=== PATIENT | female | born 1945 | race Caucasian/White ===

== ENCOUNTER → 2017-10-23 | Outpatient (CLI) | payer MEDICARE, OTHER | END | disposition home or self-care (01) | LOC: LAB 10:34 | PROVIDERS: ATTEND General Practice | DX: A26.0 Cutaneous erysipeloid (principal); I10 Essential (primary) hypertension | CPT/HCPCS: 36415; 86617; 86618 ==

== ENCOUNTER → 2020-02-28 | Outpatient (CLI) | payer MEDICARE, OTHER ==
[2020-02-28 12:36] LABS: CREATININE 1.1 mg/dL (0.6-1.0); GFR 48.4
[2020-02-28 12:53] LABS: BASO # 0.1 x10^3/uL (0.0-0.2); BASO % 1 % (0-3); EOS # 0.6 x10^3/uL (0.0-0.7); EOS % 8 % (0-3); HEMATOCRIT 34.4 % (36.0-47.0); HEMOGLOBIN 10.9 g/dL (12.0-15.5); LYMPH # 2.7 x10^3/uL (1.0-4.8); LYMPH % 37 % (24-48); MEAN CORPUSCULAR HEMOGLOBIN 25 pg (25-35); MEAN CORPUSCULAR HGB CONC 32 g/dL (31-37); MEAN CORPUSCULAR VOLUME 78 fL (79-100); MONO % 14 % (0-9); NEUT # 2.9 x10^3uL (1.8-7.7); NEUT % 41 % (31-73); PLATELET COUNT 334 x10^3/uL (140-400); RED BLOOD COUNT 4.38 x10^6/uL (3.50-5.40); RED CELL DISTRIBUTION WIDTH 16.1 % (11.5-14.5); WHITE BLOOD COUNT 7.2 x10^3/uL (4.0-11.0)
[2020-03-02 11:08] LABS: HCV ULTRA QUANT PCR HCV Not Detected IU/mL (.)
== END ==
LOC: LAB 11:28
PROVIDERS: ATTEND Internal Medicine Rheumatology
DX: I73.00 Raynaud's syndrome without gangrene (principal); L40.50 Arthropathic psoriasis, unspecified; L40.9 Psoriasis, unspecified; M06.09 Rheumatoid arthritis without rheumatoid factor, multiple sites; M25.519 Pain in unspecified shoulder
CPT/HCPCS: 82565; 84460; 85025; 86481; 86704; 86705; 86706; 86803; 87340; 87522

== ENCOUNTER → 2020-06-16 | Outpatient (CLI) | payer MEDICARE, OTHER ==
--- NOTE | 2020-06-21 10:32 | RAD ---
DATE: 06/16/2020 10:59 AM EXAM: MAMMO HAILE SCREENING BILATERAL HISTORY: Screening COMPARISON: 05/18/2019 Bilateral CC and MLO views of the breasts were performed. Bilateral breast tomosynthesis was performed in MLO projections. Due to previous neck surgery, patient was unable to position satisfactorily for CC tomographic images to be acquired. This study was interpreted with the benefit of Computerized Aided Detection (CAD). FINDINGS: Breast Density: HETERO The breast parenchyma Is heterogeneously dense, which could reduce sensitivity of mammography. Breast parenchyma level C No suspicious masses, microcalcifications or architectural distortion is present to suggest malignancy in either breast. The visualized axillae are unremarkable. IMPRESSION: No mammographic evidence of malignancy. BI-RADS CATEGORY: 1 NEGATIVE RECOMMENDED FOLLOW-UP: 12M 12 MONTH FOLLOW-UP Annual screening mammography is recommended, unless clinically indicated sooner based on symptoms or change in physical exam. PQRS compliance statement: Patient information was entered into a reminder system with a target due date for the next mammogram. Mammography is a sensitive method for finding small breast cancers, but it does not detect them all and is not a substitute for careful clinical examination. A negative mammogram does not negate a clinically suspicious finding and should not result in delay in biopsying a clinically suspicious abnormality. "Our facility is accredited by the [employer] Mammography Program."
== END ==
LOC: MAMMO 10:18
PROVIDERS: ATTEND Family Medicine
DX: Z12.31 Encounter for screening mammogram for malignant neoplasm of breast (principal)
CPT/HCPCS: 77063; 77067

== ENCOUNTER 2020-09-05 13:36 | Emergency (ER) | payer MEDICARE, OTHER ==
[~2020-09-05] VITALS: Ht 162.6 cm; Wt 72.2 kg
[2020-09-05 13:37] VITALS: BP 159/88
--- NOTE | 2020-09-05 14:17 | PHYS DOC ---
Past History Past Medical History: Arthritis, Hypertension Past Surgical History: Hysterectomy Additional Past Surgical Histo: neck pain (metal yobani), cervical rib removed Alcohol Use: Occasionally General Adult EDM: Chief Complaint: MECHANICAL FALL HPI: HPI: Patient is a 75-year-old female who presents after a fall at home. Patient states that she was walking into her house and tripped over a bag of soil, hit her head the track of the garage door. Patient denies loss of consciousness. Denies dizziness. Patient denies being on blood thinners. Patient reports right-sided head pain, right sided facial pain, right knee pain. Patient states that she was unable to ambulate on her own and had to scoot across the floor to call her daughter for help. Patient states that she can bear weight but unable to due to increase in pain in her right knee. Patient has history of PEs, hypertension, depression, high cholesterol. Review of Systems: Review of Systems: Constitutional: Denies fever or chills Eyes: Denies change in visual acuity HENT: Reports goose egg on the right side of her head, denies nasal congestion or sore throat Respiratory: Denies cough or shortness of breath Cardiovascular: Denies chest pain or edema GI: Denies abdominal pain, nausea, vomiting, bloody stools or diarrhea : Denies dysuria Musculoskeletal: Reports neck pain, denies back pain Integument: Reports abrasion to right knee, skin tear to right elbow Neurologic: Denies headache, focal weakness or sensory changes Endocrine: Denies polyuria or polydipsia Lymphatic: Denies swollen glands Psychiatric: Reports depression or anxiety Physical Exam: PE: Constitutional: Well developed, well nourished, no acute distress, non-toxic appearance. [] HENT: Normocephalic, atraumatic, bruising to anterior, right side head, oropharynx moist, no oral exudates, nose normal. [] Eyes: PERRLA, EOMI, conjunctiva normal, no discharge. [] Neck: Normal range of motion, right-sided neck tenderness, supple, no stridor. [] Cardiovascular:Heart rate regular rhythm, no murmur [] Lungs & Thorax: Bilateral breath sounds clear to auscultation [] Abdomen: Bowel sounds normal, soft, no tenderness, no masses, no pulsatile masses. [] Skin: Bruising to right side of head and under right eye, skin tear to right elbow, abrasion right knee Back: No tenderness, no CVA tenderness. [] Extremities: Right knee tenderness, ROM intact, no edema. [] Neurologic: Alert and oriented X 3, normal motor function, normal sensory function, no focal deficits noted. [] Psychologic: Affect normal, judgement normal, mood normal. [] Current Patient Data: Vital Signs: Vital Signs Date Time Temp Pulse Resp B/P (MAP) Pulse Ox O2 Delivery O2 Flow Rate FiO2 09/05/20 13:37 98.7 16 159/88 (111) Room Air EKG: EKG: [] Radiology/Procedures: Radiology/Procedures: []EXAM: Head CT without contrast; maxillofacial bone CT without contrast; cervical spine CT without contrast. HISTORY: Fall. Pain. TECHNIQUE: Computed tomographic images of the head, maxillofacial bones and cervical spine were obtained without contrast. *One or more of the following individualized dose reduction techniques were utilized for this examination: 1. Automated exposure control. 2. Adjustment of the mA and/or kV according to patient size. 3. Use of iterative reconstruction technique. COMPARISON: None. FINDINGS: Head: There is no intracranial hemorrhage. There is no mass effect or midline shift. There is no hydrocephalus. There is decreased aeration within the cerebral white matter. This is likely due to chronic small vessel disease in a patient of this age. There is a small inferolateral right frontal scalp and right supraorbital soft tissue hematoma. The mastoid air cells are clear. No calvarial lesion is seen. Maxillofacial bones: There is near complete opacification of the left maxillary sinus due to a large mucus retention cyst. There is a small air-fluid level within the right maxillary sinus. There is moderate ethmoid and mild frontal sinus mucosal thickening. There is obstruction of the left ostiomeatal unit. There is no significant nasal septal deviation. The temporomandibular joints are intact. There is lucency surrounding the root of the left first maxillary mol ar, likely due to a small periapical abscess. Cervical spine: There is instrumented anterior spinal fusion at C2-C3, C3-C4 and C6-C7 and there is instrumented posterior spinal fusion with laminectomy decompression at C3-T3. There is lucency surrounding the transplant circumference screws at T3, suggesting a component of loosening. There is mild cervical kyphosis. There is a mild chronic appearing compression fracture of T1. There is a mild age indeterminate compression fracture of T3. There is degenerative endplate remodeling and osteophytosis at the nonfused cervical levels. There is a prominent erosion at the right base of the dens. The combination of degenerative changes results in mild left foraminal stenosis at C2-C3, mild right and moderate left foraminal stenosis at C3-C4, moderate left greater than right foraminal stenosis at C4-C5, and mild left foraminal stenosis at C5-C6. There is posterior right apical pleural parenchymal scarring or atelectasis. There is a 3 cm left thyroid nodule. There are surgical clips within the left neck. IMPRESSION: 1. Small and right inferior lateral frontal scalp and supraorbital soft tissue hematoma. There is no acute intracranial finding or evidence of acute maxillofacial bone trauma. 2. Bilateral cerebral white matter changes, likely due to chronic small vessel disease. 3. Paranasal sinus disease with obstruction of the left ostiomeatal unit, described above. This is likely acute on chronic. 4. Instrumented and noninstrumented cervical and upper thoracic spine fusion. There is lucency surrounding the transpedicular screws at T3, suggesting a component of loosening. 5. Mild to moderate age indeterminant compression fracture of T3. Correlate for pain in this location. There is also a mild chronic appearing compression fr acture of T1. 6. Multilevel degenerative change involving the cervical spine, resulting in stenosis at the aforementioned levels. 7. Left thyroid nodule. This can be better assessed with a thyroid sonogram. Electronically signed by: Evelia Pretty MD (09/05/2020 2:36 PM) [facility] EXAM: Right elbow, 3 views. HISTORY: Trauma. Pain. COMPARISON: None. FINDINGS: 3 views of the right elbow are obtained. There is a prominent fat pad. There are tiny ossicles or calcifications adjacent to the radial head. No donor site is seen to suggest acute avulsion fracture fragments. There is minimal radial head spurring. IMPRESSION: 1. Tiny ossicles or calcifications adjacent to the radial head. These are chronic in appearance. 2. Minimal right elbow osteoporosis arthritis. 3. Prominent anterior fat pad suggesting a joint effusion. Short-term radiographic follow-up is recommended there is concern for a radiographically occult fracture. Electronically signed by: Evelia Pretty MD (09/05/2020 3:13 PM) [facility] XR KNEE 4 VIEWS WITH PATELLA_RT DATE: 09/05/2020 2:12 PM INDICATION: Pain, fall COMPARISON: None. FINDINGS: Bones: Nondisplaced patellar fracture Joints: Mild tricompartmental degenerative changes. Chondrocalcinosis of the menisci, nonspecific but can be seen with CPPD arthropathy. Small knee joint effusion. Miscellaneous: None. IMPRESSION: Nondisplaced patellar fracture. Small knee joint effusion. Electronically signed by: Alfredito Mesa MD (09/05/2020 3:14 PM) [facility] Heart Score: C/O Chest Pain: No Risk Factors: Risk Factors: DM, Current or recent (<one month) smoker, HTN, HLP, family history of CAD, obesity. Risk Scores: Score 0 - 3: 2.5% MACE over next 6 weeks - Discharge Home Score 4 - 6: 20.3% MACE over next 6 weeks - Admit for Clinical Observation Score 7 - 10: 72.7% MACE over next 6 weeks - Early Invasive Strategies Course & Med Decision Making: Course & Med Decision Making Pertinent Labs and Imaging studies reviewed. (See chart for details) [] Patient is 75-year-old female presents after a fall at home tripping over a bag of soil. Patient states that she was unable to ambulate after a fall and called her daughter to ring her to the emergency room. Patient denies loss of consciousness or blood thinners. Bruising to right side of her face, head, right knee , skin tear to right elbow. CT maxillofacial, CT head, ordered to rule out fracture or intracranial bleeding. CT maxillofacial and CT head negative for intracranial bleeding and fracture. X-ray of right knee shows nondisplaced patellar fracture. Patient given knee immobilizer, rice instructions and Ortho follow-up. Right elbow shows prominent anterior fat pad suggesting a joint effusion. Short-term radiographic follow-up is recommended there is concern for a radiographically occult fracture. Patient given hydrocodone in emergency room. Patient also given prescription for home for pain control. Dragon Disclaimer: Dragon Disclaimer: This electronic medical record was generated, in whole or in part, using a voice recognition dictation system. Departure Departure: Impression: Primary Impression: Patellar fracture Qualified Codes: S82.001A - Unspecified fracture of right patella, initial encounter for closed fracture Disposition: HOME / SELF CARE / HOMELESS Condition: STABLE Referrals: BARBARA MCFALRAND (PCP) Patient Instructions: Patellar Fracture-Brief Additional Instructions: You were seen in the emergency room for a fall. CT of your head and face was negative for any acute fractures or bleeding. The x-ray of your right knee showed a nondisplaced patellar fracture. A knee immobilizer was provided. Your elbow also showed a possible fracture and recommended a follow-up x-ray if pain continues. I am giving a prescription for hydrocodone for home for pain control. You also will need to call Ortho today and get an appointment for a follow-up for further management. Is important that you rest, use ice, knee immobilizer, and elevate to reduce swelling. Please return to the emergency room with worsening symptoms or concerns EMERGENCY DEPARTMENT GENERAL DISCHARGE INSTRUCTIONS Thank you for coming to [facility] (ED) today and trusting us with you care. We trust that you had a positivie experience in our Emergency Department. If you wish to speak to the department management, you may call the director at [phone]. YOUR FOLLOW UP INSTRUCTIONS ARE FOLLOWS: 1. Do you have a private Doctor? If you do not have a private doctor, please ask for a resource list of physicians or clinics that may be able to assist you with follow up care. 2. The Emergency Physician has interpreted your x-rays. The X-Ray specialist will also review them. If there is a change in the findings, you will be notified in 48 hours when at all possible. 3. A lab test or culture has been done, your results will be reviewed and you will be notified if you need a change in treatment. ADDITIONAL INSTRUCTIONS AND INFORMATION: 1. Your care today has been supervised by a physician who is specially trained in emergency care. Many problems require more than one evaluation for a complete diagnosis and treatment. We recommend that you schedule your follow up appointment as recommended to ensure complete treatment of you illness or injury. If you are unable to obtain follow up care and continue to have a problem, or if your condition worsens, we recommend that you return to the ED. 2. We are not able to safely determine your condition over the phone nor are we able to give sound medical advice over the phone. For these safety reasons, if you call for medical advice we will ask you to come to the ED for further evaluation. 3. If you have any questions regarding these discharge instructions please call the ED at [phone]. SAFETY INFORMATION: In the interest of safety, wellness, and injury prevention; we encourage you to wear your sealbelt, if you smoke; quite smoking, and we encourage family to use a protective helmet for bicycling and other sporting events that present an increased risk for head injury. IF YOUR SYMPTOMS WORSEN OR NEW SYMPTOMS DEVELOP, OR YOU HAVE CONCERNS ABOUT YOUR CONDITION; OR IF YOUR CONDITION WORSENS WHILE YOU ARE WAITING FOR YOUR FOLLOW UP APPOINTMENT; EITHER CONTACT YOUR PRIMARY CARE DOCTOR, THE PHYSICIAN WHOSE NAME AND NUMBER YOU WERE GIVEN, OR RETURN TO THE ED IMMEDIATELY. Scripts Hydrocodone Bit/Acetaminophen (HYDROCODONE-APAP 5-325 ) 1 Each Tablet 1 TAB PO PRN Q6HRS PRN for PAIN for 3 Days, #12 TAB 0 Refills Prov: LUIS ENRIQUE CAZARES APRN 09/05/20 LUIS ENRIQUE CAZARES APRN September 05, 2020 14:17
--- NOTE | 2020-09-05 14:38 | RAD ---
EXAM: Head CT without contrast; maxillofacial bone CT without contrast; cervical spine CT without con trast. HISTORY: Fall. Pain. TECHNIQUE: Computed tomographic images of the head, maxillofacial bones and cervical spine were obtai yanni without contrast. *One or more of the following individualized dose reduction techniques were utilized for this examina tion: 1. Automated exposure control. 2. Adjustment of the mA and/or kV according to patient size. 3. Use of iterative reconstruction technique. COMPARISON: None. FINDINGS: Head: There is no intracranial hemorrhage. There is no mass effect or midline shift. There is no hydr ocephalus. There is decreased aeration within the cerebral white matter. This is likely due to chroni c small vessel disease in a patient of this age. There is a small inferolateral right frontal scalp a nd right supraorbital soft tissue hematoma. The mastoid air cells are clear. No calvarial lesion is s een. Maxillofacial bones: There is near complete opacification of the left maxillary sinus due to a large mucus retention cyst. There is a small air-fluid level within the right maxillary sinus. There is mod erate ethmoid and mild frontal sinus mucosal thickening. There is obstruction of the left ostiomeatal unit. There is no significant nasal septal deviation. The temporomandibular joints are intact. There is lucency surrounding the root of the left first maxillary molar, likely due to a small periapical abscess. Cervical spine: There is instrumented anterior spinal fusion at C2-C3, C3-C4 and C6-C7 and there is i nstrumented posterior spinal fusion with laminectomy decompression at C3-T3. There is lucency surroun ding the transplant circumference screws at T3, suggesting a component of loosening. There is mild ce rvical kyphosis. There is a mild chronic appearing compression fracture of T1. There is a mild age in determinate compression fracture of T3. There is degenerative endplate remodeling and osteophytosis a t the nonfused cervical levels. There is a prominent erosion at the right base of the dens. The combi nation of degenerative changes results in mild left foraminal stenosis at C2-C3, mild right and moder ate left foraminal stenosis at C3-C4, moderate left greater than right foraminal stenosis at C4-C5, a nd mild left foraminal stenosis at C5-C6. There is posterior right apical pleural parenchymal scarrin g or atelectasis. There is a 3 cm left thyroid nodule. There are surgical clips within the left neck. IMPRESSION: 1. Small and right inferior lateral frontal scalp and supraorbital soft tissue hematoma. There is no acute intracranial finding or evidence of acute maxillofacial bone trauma. 2. Bilateral cerebral white matter changes, likely due to chronic small vessel disease. 3. Paranasal sinus disease with obstruction of the left ostiomeatal unit, described above. This is li carlos acute on chronic. 4. Instrumented and noninstrumented cervical and upper thoracic spine fusion. There is lucency surrou nding the transpedicular screws at T3, suggesting a component of loosening. 5. Mild to moderate age indeterminant compression fracture of T3. Correlate for pain in this location . There is also a mild chronic appearing compression fracture of T1. 6. Multilevel degenerative change involving the cervical spine, resulting in stenosis at the aforemen tioned levels. 7. Left thyroid nodule. This can be better assessed with a thyroid sonogram. Electronically signed by: Evelia Pretty MD (09/05/2020 2:36 PM) [facility]
--- NOTE | 2020-09-05 15:15 | RAD ---
EXAM: Right elbow, 3 views. HISTORY: Trauma. Pain. COMPARISON: None. FINDINGS: 3 views of the right elbow are obtained. There is a prominent fat pad. There are tiny ossic les or calcifications adjacent to the radial head. No donor site is seen to suggest acute avulsion fr acture fragments. There is minimal radial head spurring. IMPRESSION: 1. Tiny ossicles or calcifications adjacent to the radial head. These are chronic in appearance. 2. Minimal right elbow osteoporosis arthritis. 3. Prominent anterior fat pad suggesting a joint effusion. Short-term radiographic follow-up is recom mended there is concern for a radiographically occult fracture. Electronically signed by: Evelia Pretty MD (09/05/2020 3:13 PM) [facility]
--- NOTE | 2020-09-05 15:16 | RAD ---
XR KNEE 4 VIEWS WITH PATELLA_RT DATE: 09/05/2020 2:12 PM INDICATION: Pain, fall COMPARISON: None. FINDINGS: Bones: Nondisplaced patellar fracture Joints: Mild tricompartmental degenerative changes. Chondrocalcinosis of the menisci, nonspecific bu t can be seen with CPPD arthropathy. Small knee joint effusion. Miscellaneous: None. IMPRESSION: Nondisplaced patellar fracture. Small knee joint effusion. Electronically signed by: Alfredito Mesa MD (09/05/2020 3:14 PM) [facility]
[2020-09-05] MEDS ORDERED: HYDR-2155 PO (15:27)
[2020-09-05] MEDS ORDERED: HYDROcodone/APAP 5/325MG 1 TAB TABLET PO ONE (15:30)
== END 2020-09-05 15:51 | disposition home or self-care (01) ==
LOC: ER 13:36
DX: S82.001A Unspecified fracture of right patella, initial encounter for closed fracture (principal); S51.011A Laceration without foreign body of right elbow, initial encounter; S00.93XA Contusion of unspecified part of head, initial encounter; M54.2 Cervicalgia; M19.90 Unspecified osteoarthritis, unspecified site; I10 Essential (primary) hypertension; W01.0XXA Fall on same level from slipping, tripping and stumbling without subsequent striking against object, initial encounter; Y93.01 Activity, walking, marching and hiking; Y92.89 Other specified places as the place of occurrence of the external cause; Y99.8 Other external cause status
CPT/HCPCS: 70450; 70486; 72125; 73080; 73564; 99285

== ENCOUNTER 2020-09-13 15:17 | Emergency (ER) | payer MEDICARE, OTHER ==
[~2020-09-13] VITALS: Ht 162.6 cm; Wt 72.2 kg
[~2020-09-13 15:17] MED LIST: HYDR-2155 PO
--- NOTE | 2020-09-13 15:38 | RAD ---
EXAM: Chest, single view. HISTORY: Pain. COMPARISON: None. FINDINGS: A frontal view of the chest is obtained. There is linear atelectasis or scarring within the right mid thorax. There is also mild elevation of the right hemidiaphragm with suspected basilar ate lectasis or pleural parenchymal scarring. The heart is normal in size. There is fusion instrumentatio n at the cervical thoracic junction. There are left axillary clips. IMPRESSION: Right midthoracic and basilar atelectasis or scarring and mild elevation of the right hem idiaphragm. Electronically signed by: Evelia Pretty MD (09/13/2020 3:35 PM) [id number]
--- NOTE | 2020-09-13 15:41 | PHYS DOC ---
Past History Past Medical History: Arthritis, Hypertension (LUIS ENRIQUE CAZARES APRN) Past Surgical History: Hysterectomy Additional Past Surgical Histo: neck pain (metal yobani), cervical rib removed (LUIS ENRIQUE CAZARES APRN) Alcohol Use: Occasionally (LUIS ENRIQUE CAZARES APRN) General Adult EDM: Chief Complaint: CHEST PAIN HPI: HPI: Patient is a 75-year-old female presents with chest pain that radiates through to her back and shortness of breath. Patient states that chest pain started on Friday, back shortness of breath started yesterday. Patient states the pain has been constant. Patient reports that pain is worse when she tries to take a deep breath. Patient's been taking hydrocodone to help with the pain with no relief. Patient was seen here in the emergency room last week after a fall. Patient states that she has been sitting around a lot since the fall due to her knee brace. Patient states that she has a history of PEs, DVT, hypertension. (LUIS ENRIQUE CAZARES APRN) Review of Systems: Review of Systems: Constitutional: Denies fever or chills Eyes: Denies change in visual acuity HENT: Denies nasal congestion or sore throat Respiratory: Denies cough, reports shortness of breath Cardiovascular: Reports chest pain, denies edema GI: Denies abdominal pain, nausea, vomiting, bloody stools or diarrhea : Denies dysuria Musculoskeletal: Reports back pain, denies joint pain Integument: Denies rash Neurologic: Denies headache, focal weakness or sensory changes Endocrine: Denies polyuria or polydipsia Lymphatic: Denies swollen glands Psychiatric: Denies depression or anxiety (LUIS ENRIQUE CAZARES APRN) Allergies: Allergies: Allergies Coded Allergies Type Severity Reaction Last Updated Verified No Known Drug Allergies 09/05/20 No (LUIS ENRIQUE CAZARES APRN) Physical Exam: PE: Constitutional: Well developed, well nourished, no acute distress, non-toxic appearance. [] HENT: Normocephalic, atraumatic, bilateral external ears normal, oropharynx moist, no oral exudates, nose normal. [] Eyes: PERRLA, EOMI, conjunctiva normal, no discharge. [] Neck: Normal range of motion, no tenderness, supple, no stridor. [] Cardiovascular: Sinus tachycardia Lungs & Thorax: Bilateral breath sounds clear to auscultation [] Abdomen: Bowel sounds normal, soft, no tenderness, no masses, no pulsatile masses. [] Skin: Warm, dry, no erythema, no rash. [] Back: Right-sided tenderness, no CVA tenderness. [] Extremities: No tenderness, no cyanosis, no clubbing, ROM intact, no edema. [] Neurologic: Alert and oriented X 3, normal motor function, normal sensory function, no focal deficits noted. [] Psychologic: Affect normal, judgement normal, mood normal. [] (LUIS ENRIQUE CAZARES APRN) Current Patient Data: Vital Signs: Vital Signs Date Time Temp Pulse Resp B/P (MAP) Pulse Ox O2 Delivery O2 Flow Rate FiO2 09/13/20 15:22 97.8 96 16 155/85 (108) 99 Room Air (LUIS ENRIQUE CAZARES APRN) EKG: EKG: [] (LUIS ENRIQUE CAZARES APRN) Radiology/Procedures: Radiology/Procedures: []EXAM: Chest, single view. HISTORY: Pain. COMPARISON: None. FINDINGS: A frontal view of the chest is obtained. There is linear atelectasis or scarring within the right mid thorax. There is also mild elevation of the right hemidiaphragm with suspected basilar atelectasis or pleural parenchymal scarring. The heart is normal in size. There is fusion instrumentation at the cervical thoracic junction. There are left axillary clips. IMPRESSION: Right midthoracic and basilar atelectasis or scarring and mild elevation of the right hemidiaphragm. Electronically signed by: Evelia Pretty MD (09/13/2020 3:35 PM) [id number] EXAMINATION: CTA CHEST CLINICAL HISTORY: Shortness of breath Technique: Spiral CT acquisition of the chest from the thoracic inlet to the upper abdomen following IV contrast with coronal and sagittal reformatted images also provided for review. 3D maximum intensity projection images also performed. CT Dose Reduction Employed: One or more of the following individualized dose reduction techniques were utilized for this examination: 1. Automated exposure control 2. Adjustment of the mA and/or kV according to patient size 3. Use of iterative reconstruction technique. Comparison: Chest radiograph same day FINDINGS: Pulmonary Vasculature: No evidence of main, lobar, or segmental pulmonary arterial thrombus. Lung Parenchyma, Pleura, and Airways: Mild loculated right pleural effusion with overlying airspace disease. Scattered small cysts and curvilinear subsegmental atelectasis and/or scarring throughout the bilateral lungs. Central airways patent. Lower Neck, Lymph Nodes, and Mediastinum: Visualized thyroid gland within normal limits. No definite mediastinal lymphadenopathy. Heart, Pericardium, and Thoracic Vessels: Cardiac chambers normal in size. No pericardial effusion. Minimal aortic atherosclerotic calcification without aneurysm. Coronary atherosclerotic calcification, incompletely evaluated. Bones and Soft Tissues: Multilevel degenerative changes in the thoracic spine. Partially visualized cervicothoracic fusion hardware. Upper Abdomen: Diffuse hypoattenuation of the hepatic parenchyma, compatible with steatosis. Cholelithiasis without evidence of acute cholecystitis. IMPRESSION: No evidence of main, lobar, or segmental pulmonary embolism. Mild loculated right pleural effusion with overlying airspace disease. Scattered subsegmental atelectasis and/or scarring and small cystic changes bilaterally. Electronically signed by: Rudy Mayorga DO (09/13/2020 6:20 PM) [facility] (LUIS ENRIQUE CAZARES APRN) Heart Score: C/O Chest Pain: Yes HEART Score for Chest Pain: HEART Score for Chest Pain Response (Comments) Value History Moderately Suspicious 1 ECG Normal 0 Age > 65 2 Risk Factors 1 or 2 Risk Factors 1 Troponin < Normal Limit 0 Total 4 Risk Factors: Risk Factors: DM, Current or recent (<one month) smoker, HTN, HLP, family history of CAD, obesity. Risk Scores: Score 0 - 3: 2.5% MACE over next 6 weeks - Discharge Home Score 4 - 6: 20.3% MACE over next 6 weeks - Admit for Clinical Observation Score 7 - 10: 72.7% MACE over next 6 weeks - Early Invasive Strategies (LUIS ENRIQUE CAZARES APRN) Course & Med Decision Making: Course & Med Decision Making Pertinent Labs and Imaging studies reviewed. (See chart for details) [] 75-year-old female presents with shortness of breath and chest pain that radiates through to her back. EKG shows a sinus tachycardia heart rate 102. D- dimer ordered due to tachycardia and shortness of breath. Patient states that she has a history of PEs. D-dimer was 3.37. CTA ordered to rule out PE. Patient given morphine for back and chest pain. CTA was negative for PE. CTA showed a loculated pleural effusion. Patient started on Levaquin. Heart score of 4. Troponin x2 is negative. Patient status dropped into the 70s with ambulation. Patient removed from her after about a minute and. Patient's been satting mid to high 90s while at rest. BNP was 467. Creatinine was 1.2. Spoke with Dr. Vallecillo who wants to admit to [facility]. Spoke with patient and daughter who are both okay with admission to [facility]. (LUIS ENRIQUE CAZARES APRN) Course & Med Decision Making Did not see or evaluate patient. Agree with FOOD SERVICE AIDE's work-up and disposition per note. (TOMASA LUNA MD) Dragon Disclaimer: Dragon Disclaimer: This electronic medical record was generated, in whole or in part, using a voice recognition dictation system. (LUIS ENRIQUE CAZARES APRN) Departure Departure: Impression: Primary Impression: Pleural effusion on right Disposition: ADMITTED INPATIENT Admitting Physician: Marlee Fuentes (LUIS ENRIQUE CAZARES APRN) Condition: STABLE Referrals: BARBARA MCFARLAND (PCP) LUIS ENRIQUE CAZARES APRN September 13, 2020 15:41 TOMASA LUNA MD September 14, 2020 03:36
[2020-09-13 16:12] LABS: BASO # 0.1 x10^3/uL (0.0-0.2); BASO % 1 % (0-3); EOS # 0.7 x10^3/uL (0.0-0.7); EOS % 6 % (0-3); HEMATOCRIT 33.4 % (36.0-47.0); HEMOGLOBIN 10.6 g/dL (12.0-15.5); LYMPH # 2.7 x10^3/uL (1.0-4.8); LYMPH % 23 % (24-48); MEAN CORPUSCULAR HEMOGLOBIN 26 pg (25-35); MEAN CORPUSCULAR HGB CONC 32 g/dL (31-37); MEAN CORPUSCULAR VOLUME 81 fL (79-100); MONO # 1.3 x10^3/uL (0.0-1.1); MONO % 11 % (0-9); NEUT # 6.8 x10^3uL (1.8-7.7); NEUT % 59 % (31-73); PLATELET COUNT 504 x10^3/uL (140-400); RED CELL DISTRIBUTION WIDTH 15.7 % (11.5-14.5); WHITE BLOOD COUNT 11.6 x10^3/uL (4.0-11.0)
[2020-09-13 16:19] LABS: CALCIUM 8.5 mg/dL (8.5-10.1); CREATININE 1.2 mg/dL (0.6-1.0); GFR 43.8
[2020-09-13 16:31] LABS: ALBUMIN 2.6 g/dL (3.4-5.0); ALBUMIN/GLOBULIN RATIO 0.5 (1.0-1.7); MAGNESIUM 1.5 mg/dL (1.8-2.4); TOTAL BILIRUBIN 0.3 mg/dL (0.2-1.0); TOTAL PROTEIN 7.8 g/dL (6.4-8.2)
--- NOTE | 2020-09-13 16:45 | EKG ---
[address] [address] Test Date: 2020-09-13 Test Time: 15:22:59 Pat Name: ROYCE JEFF Department: Room: Gender: F Exhibition Designer: HERIBERTO : 1945 Requested By: LUIS ENRIQUE CAZARES Order Number: [id number] Reading MD: Measurements Intervals [place] Rate: 102 P: -3 MS: 156 QRS: -16 QRSD: 62 T: 18 QT: 304 QTc: 400 Interpretive Statements SINUS TACHYCARDIA LEFTWARD AXIS R-S TRANSITION ZONE IN V LEADS DISPLACED TO THE RIGHT OTHERWISE NORMAL ECG RI6.02 No previous ECG available for comparison
[2020-09-13] MEDS ORDERED: MORPHINE SULFATE 4 MG/ML DISP.SYRIN. IV ONE ×2 (17:00→18:30)
[2020-09-13] MEDS ORDERED: IOHEXOL 350 MG/ML 100 ML VIAL. IV ONE (17:15)
--- NOTE | 2020-09-13 18:23 | RAD ---
EXAMINATION: CTA CHEST CLINICAL HISTORY: Shortness of breath Technique: Spiral CT acquisition of the chest from the thoracic inlet to the upper abdomen following IV contrast with coronal and sagittal reformatted images also provided for review. 3D maximum intensi ty projection images also performed. CT Dose Reduction Employed: One or more of the following individualized dose reduction techniques wer e utilized for this examination: 1. Automated exposure control 2. Adjustment of the mA and/or kV ac cording to patient size 3. Use of iterative reconstruction technique. Comparison: Chest radiograph same day FINDINGS: Pulmonary Vasculature: No evidence of main, lobar, or segmental pulmonary arterial thrombus. Lung Parenchyma, Pleura, and Airways: Mild loculated right pleural effusion with overlying airspace d isease. Scattered small cysts and curvilinear subsegmental atelectasis and/or scarring throughout the bilateral lungs. Central airways patent. Lower Neck, Lymph Nodes, and Mediastinum: Visualized thyroid gland within normal limits. No definite mediastinal lymphadenopathy. Heart, Pericardium, and Thoracic Vessels: Cardiac chambers normal in size. No pericardial effusion. M inimal aortic atherosclerotic calcification without aneurysm. Coronary atherosclerotic calcification, incompletely evaluated. Bones and Soft Tissues: Multilevel degenerative changes in the thoracic spine. Partially visualized c ervicothoracic fusion hardware. Upper Abdomen: Diffuse hypoattenuation of the hepatic parenchyma, compatible with steatosis. Cholelit hiasis without evidence of acute cholecystitis. IMPRESSION: No evidence of main, lobar, or segmental pulmonary embolism. Mild loculated right pleural effusion with overlying airspace disease. Scattered subsegmental atelectasis and/or scarring and small cystic changes bilaterally. Electronically signed by: Rudy Mayorga DO (09/13/2020 6:20 PM) ERICK
[2020-09-13 18:50] LABS: BACTERIA,URINE 0 /HPF (0-FEW); BILIRUBIN,URINE NEG (NEG); CLARITY,URINE HAZY; COLOR,URINE YELLOW; GLUCOSE,URINE NEG (NEG); NITRITE,URINE NEG (NEG); RBC,URINE 0 /HPF (0-2); SQUAMOUS EPITHELIAL CELL,UR MOD /LPF; UROBILINOGEN,URINE 0.2 mg/dL (0.2 mg/dL); WBC,URINE 0 /HPF (0-4); YEAST,URINE PRESENT /HPF
[2020-09-13 20:53] VITALS: BP 135/54
== END 2020-09-13 22:23 | disposition short-term general hospital (02) ==
LOC: ER 15:17
DX: J90 Pleural effusion, not elsewhere classified (principal); R07.89 Other chest pain; M54.89 Other dorsalgia; M19.90 Unspecified osteoarthritis, unspecified site; I10 Essential (primary) hypertension; Z86.711 Personal history of pulmonary embolism; Z86.718 Personal history of other venous thrombosis and embolism
CPT/HCPCS: 36415; 71045; 71275; 80053; 81001; 83690; 83735; 83880; 84484; 85025; 85379; 85610; 85730; 93005; 96365; 96375; 96376; 99285; J1956; J2270

== ENCOUNTER → 2020-10-27 | Outpatient (CLI) | payer MEDICARE, OTHER ==
--- NOTE | 2020-10-27 11:35 | RAD ---
EXAM: Chest, 2 views. HISTORY: Pleural effusion. COMPARISON: None. FINDINGS: 2 views of the chest are obtained. There has been interval decrease in a small partially lo culated right basilar pleural effusion. There is stable linear atelectasis or scarring within the rig ht middle lobe. There is no pneumothorax. The heart is normal in size. There is fusion instrumentatio n at the cervical thoracic junction. IMPRESSION: Slight interval decrease in a partially loculated right basilar pleural effusion and stab le right middle lobe linear atelectasis or scarring. Electronically signed by: Evelia Pretty MD (10/27/2020 11:32 AM) [id number]
== END ==
LOC: RAD 11:17
PROVIDERS: ATTEND Family Medicine
DX: J90 Pleural effusion, not elsewhere classified (principal); Z87.09 Personal history of other diseases of the respiratory system; Z87.01 Personal history of pneumonia (recurrent)
CPT/HCPCS: 71046

== ENCOUNTER → 2021-05-09 | Outpatient (CLI) | payer MEDICARE, OTHER ==
[2021-05-09 14:24] LABS: BASO # 0.1 x10^3/uL (0.0-0.2); BASO % 1 % (0-3); EOS # 0.6 x10^3/uL (0.0-0.7); EOS % 8 % (0-3); HEMATOCRIT 34.2 % (36.0-47.0); HEMOGLOBIN 11.2 g/dL (12.0-15.5); LYMPH # 3.1 x10^3/uL (1.0-4.8); LYMPH % 44 % (24-48); MEAN CORPUSCULAR HEMOGLOBIN 28 pg (25-35); MEAN CORPUSCULAR HGB CONC 33 g/dL (31-37); MEAN CORPUSCULAR VOLUME 85 fL (79-100); MONO # 0.9 x10^3/uL (0.0-1.1); MONO % 13 % (0-9); NEUT # 2.4 x10^3uL (1.8-7.7); NEUT % 34 % (31-73); PLATELET COUNT 284 x10^3/uL (140-400); RED BLOOD COUNT 4.01 x10^6/uL (3.50-5.40); WHITE BLOOD COUNT 7.1 x10^3/uL (4.0-11.0)
[2021-05-09 14:34] LABS: CREATININE 1.1 mg/dL (0.6-1.0); GFR 48.3
== END ==
LOC: LAB 13:41
PROVIDERS: ATTEND Internal Medicine Rheumatology
DX: L40.50 Arthropathic psoriasis, unspecified (principal); Z79.899 Other long term (current) drug therapy
CPT/HCPCS: 36415; 82565; 84460; 85025

== ENCOUNTER → 2021-09-11 | Outpatient (CLI) | payer MEDICARE, OTHER ==
--- NOTE | 2021-09-11 17:35 | RAD ---
DG SMALL BOWEL FOLLOW THROUGH Indication: DIARRHEA X 2 MONTHS, LOSS OF APPETITE Comparison: None. Technique: Preliminary clay mixer film of the abdomen was obtained. Then following ingestion of oral bariu m, serial images of the abdomen were obtained to assess progress of contrast throughout the small bow el. 6 total overhead images were obtained. Findings: The clay mixer image demonstrates a nonobstructive bowel gas pattern. The 0 minute AP image obtained follo wing the administration of contrast demonstrates passage of contrast through the entire small bowel t o the cecum. Delayed 30 and 45 minute images were obtained to ensure contrast passage as well as obli que images for better appreciation of structures. The small bowel fold pattern is unremarkable. Areas of peristalsis are noted which vary on follow-up images. No stricture is identified. No masses appreciated. Incidentally visualized left hip arthroplasty. Degenerative changes of the pubic symphysis. Lung base s appear clear. IMPRESSION: 1. Rapid transit of contrast through the small bowel arriving at the cecum at the initial 0 minute i mage. 2. No bowel abnormalities identified. Electronically signed by: Raymundo Rodriguez MD (09/11/2021 5:32 PM) [id number]
== END ==
LOC: RAD 12:20
PROVIDERS: ATTEND Internal Medicine Gastroenterology
DX: R19.2 Visible peristalsis (principal); M16.10 Unilateral primary osteoarthritis, unspecified hip; R19.7 Diarrhea, unspecified; R63.0 Anorexia
CPT/HCPCS: 74250

== ENCOUNTER → 2021-09-13 | Outpatient (CLI) | payer MEDICARE, OTHER | LOC: LAB 14:23 | DX: Z96.642 Presence of left artificial hip joint (principal) | CPT/HCPCS: 36415; 85651; 86140 ==

== ENCOUNTER → 2021-09-13 | Outpatient (CLI) | payer MEDICARE, OTHER | LOC: LAB 13:55 | PROVIDERS: ATTEND Internal Medicine Gastroenterology | DX: R19.7 Diarrhea, unspecified (principal) | CPT/HCPCS: 82607 ==